=== PATIENT | male | born 1995 | race African-American/Black ===

== ENCOUNTER 2021-01-16 11:59 | Emergency (ER) | payer MEDICAID ==
[~2021-01-16] VITALS: Ht 188 cm; Wt 91.0 kg
[~2021-01-16 11:59] MED LIST: BO1 TP; CEPH500T MT
[2021-01-16 12:03] VITALS: BP 143/91
[2021-01-16] MEDS ORDERED: MED4 MT (14:32)
[2021-01-16] MEDS ORDERED: ALBU18HF2 IH (14:32)
== END 2021-01-16 14:59 | disposition home or self-care (01) ==
LOC: ER 11:59
DX: J11.1 Influenza due to unidentified influenza virus with other respiratory manifestations (principal); F12.10 Cannabis abuse, uncomplicated; Z20.822 Contact with and (suspected) exposure to COVID-19
CPT/HCPCS: 71045; 87426; 99284; Z7610